=== PATIENT | male | born 1990 | race Caucasian/White ===

== ENCOUNTER 2019-02-28 07:12 | Outpatient (CLI) | payer OTHER, SELFPAY ==
[2019-02-28 07:39] LABS: HCT 43.4 % (40.0-50.0); HGB 15.8 g/dL (13.5-17.5); Mean Corp. HGB Concentration 36.4 g/dL (32.0-36.0); Mean Corpuscular Hemoglobin 32.4 pg (27.0-33.0); Mean Corpuscular Volume 89.1 fL (80-95); Platelet Count 168 x1000/uL (130-400); RBC 4.87 m/cumm (4.50-6.00); RBC Distribution Width 11.4 % (11.8-14.1); White Blood Cell Count 5.26 k/cumm (4.4-10.8)
[2019-02-28 08:54] LABS: ALT 36 U/L (12-78); AST 22 U/L (15-37); Albumin 4.1 g/dL (3.4-5.0); Alkaline Phosphatase 62 U/L (46-116); Anion Gap 7.3 mmol/L (3-11); BUN 22 mg/dL (7-18); Bilirubin, Total 0.5 mg/dL (0.2-1.0); CO2 30.7 mmol/L (21.0-32.0); CREATININE 1.18 mg/dL (0.70-1.30); Calcium 8.4 mg/dL (8.5-10.1); Calculated LDL 73 mg/dL; Chloride 101 mmol/L (98-107); Cholesterol 132 mg/dL (50-200); Glucose 77 mg/dL (70-100); HDL Cholesterol 40 mg/dL (40-60); Potassium 4.5 mmol/L (3.5-5.1); Sodium 139 mmol/L (136-145); Total Protein 6.7 g/dL (6.4-8.2); Triglyceride 96 mg/dL (30-150)
== END 2019-02-28 07:32 ==
PROVIDERS: PCP Family Medicine; Visit Provider Family Medicine
DX: Z00.00 Encounter for general adult medical examination without abnormal findings (principal); Z13.220 Encounter for screening for lipoid disorders; Z13.228 Encounter for screening for other metabolic disorders; Z13.0 Encounter for screening for diseases of the blood and blood-forming organs and certain disorders involving the immune mechanism
CPT/HCPCS: 36415; 80053; 80061; 83721; 85027

== ENCOUNTER 2021-07-09 08:14 | Emergency (ER) | payer OTHER, SELFPAY ==
[2021-07-09 08:20] VITALS: BP 145/88; PULSE 104; TEMP 37.2; O2SAT 98
[2021-07-09 08:29] VITALS: RESP 16
[2021-07-09 08:37] VITALS: BP 131/80; PULSE 94; RESP 16; O2SAT 99
--- NOTE | 2021-07-09 08:38 | ED.GENADUL_ITS ---
Discharge Plan Disposition Patient Disposition: HOME Condition: Stable Discharge Details Chief Complaint: GenMedical Clinical Impression: Acute viral syndrome Primary Care Provider: Kaia Mckay ED Provider: Anup Vizcaino Home Meds and New Rx's Prescriptions: No Action No Known Home Meds RF: 0 Discharge Instructions Instructions: Viral Syndrome (ED) Additional Instructions: Rapid strep is negative, culture is pending. Covid send out pending, will likely result in the next 2-3 days. I do recommend assuming that this is Covid until proven otherwise and quarantine until your test has resulted negative. You will receive a call either way with your Covid results. Plenty of fluids to avoid dehydration. Sfoa-[id number] medications as directed for symptomatic control. Please watch for new or worsening symptoms and return to the ER for any concerns. Otherwise please contact your primary care provider on Sunday to discuss your ongoing symptoms and need for outpatient reevaluation. Medical Decision Making 30-year-old gentleman presents for dry cough, sore throat, body aches that began yesterday. Clinically he appears well,. He is afebrile, O2 sats are 98% on room air. Heart rate in the 90s. Will obtain a rapid strep given his sore throat and a send out Covid test. He is not requiring any supplemental oxygen and if this was a Covid he does not fall into a high risk category and therefore would not be a candidate for monoclonal antibody therapy. We discussed presumptively treating as though this is Covid, recommend quarantine until he test has resulted hopefully negative in the next 2-3 days. Plenty of fluids to avoid dehydration, [id number] medication for symptomatic control. Patient is agreeable to this plan and has additional questions or concerns. Rapid strep negative, culture pending Standard discharge and return precautions provided This documentation was generated using [employer] system, please disregard any oddities of phrase or misspellings. Medical Records Medical records reviewed: Yes I reviewed the patient's medical records. HPI General Mode of arrival: ambulatory . Date/Time Provider Initiated Documentation: 07/09/21 08:24 . Limitations to Documentation: no limitations . Information obtained by: patient . HPI Narrative: This is a 30-year-old gentleman, non-smoker, no significant past medical history, who has had his 2 vaccines of Moderna for Covid, presents to the ER today reporting dry cough, nasal congestion, sore throat, body aches that began yesterday. Patient states that he is able to tolerate p.o. intake and has had some qtkx-ijy-hyllvek medications as well with little relief of his symptoms. Patient also reports headache. He denies any neck pain, fever, chest pain, shortness of breath, abdominal pain, nausea, vomiting, skin rash, diarrhea, materia or dysuria. Patient denies any known sick contacts. He is hoping for a rapid Covid test. Related Data Home Medications Medication Instructions Recorded Confirmed Unknown [No Known Home Meds] 02/24/19 07/09/21 Allergies Allergy/AdvReac Type Severity Reaction Status Date / Time bug Allergy Severe Anaphylaxsi Uncoded 07/09/21 08:25 s General Stated Complaint: GenMedical ARIAN: 4 Review of Systems Constitutional Constitutional: Denies fever(s) and Reports headache(s) ENT Ears, Nose, Mouth, and Throat: Reports headache(s), Denies neck pain and Reports sore throat Cardiovascular Cardiovascular: Denies chest pain and Denies dyspnea Respiratory Respiratory: Reports cough and Denies dyspnea Gastrointestinal Gastrointestinal: Denies abdominal pain, Denies nausea and Denies vomiting Musculoskeletal Musculoskeletal: Reports myalgias Integumentary/Breasts Skin/Breast: Denies rash Neurologic Neurologic: Reports headache(s) [facility] All Active Problems (Updated 07/09/21 @ 08:47 by CHRISTAL Chavez) Acute viral syndrome (Acute) Onychomycosis due to dermatophyte (Acute) Family History Mother Skin cancer Father No problems noted. Brother No problems noted. Maternal Grandfather , 50s Throat cancer Alcohol abuse Paternal Grandfather Prostate cancer Maternal Grandmother , 60s Breast cancer Social History Smoking/Tobacco Use Status: Never Smoking risk assessment performed?: Yes Alcohol Intake: current Alcohol Intake frequency: a few times a month Alcohol type: beer and hard liquor Drug use: Rarely Substance use type: marijuana Counseling given: No Counseling provided: none Caregiver/Support person: No Household members: spouse and children Housing: house Communication Needs: None Do you need help understanding health information?: Never Pets and animals: No Sexually active: Yes Do you think of yourself as: straight/heterosexual Current gender identity: male What is your relationship status?: How often do you talk on the phone with friends or family?: twice per week How often do you get together with friends or relatives?: once per week How often do you attend hinduism or latter-day services?: decline to answer Do you belong to any clubs or organized social groups?: no Panel score (0-1 are the most socially isolated patients): 2 What type of physical activity do you participate in: weight lifting Duration: 45-60 minutes/day Frequency: 5-6 times per week Laura/Oriental Orthodox: None Special laura needs: No Seatbelt use: sometimes Helmet use: Yes Helmet use: always Drive intox or ride w/intox truck driver instructor: No Do you feel safe at home: Yes Do you feel safe in your relationship?: Yes Exam Const General: cooperative, healthy appearing, comfortable and no acute distress Orientation: alert and awake HENMT Head: normal to inspection, normocephalic and atraumatic Ears: external ears normal, TM's normal bilaterally and EAC's normal Face and sinus: normal facial exam Mouth: moist mucous membranes Throat: uvula midline, posterior oropharynx abnormal erythema; no edema and no exudates, uvula not displaced and no uvular edema Eyes General: appearance normal, both eyes and all related structures Conjunctivae: conjunctivae normal Neck Neck: normal visual inspection, full ROM, no lymphadenopathy, no meningeal signs, trachea midline, supple and nontender Resp Effort & Inspection: normal respiratory effort and able to speak in complete sentences Auscultation: clear to auscultation bilaterally Cardio Rate: regular rate Rhythm: regular rhythm GI Palpation: soft and nontender Back/Spine/Pelvis Back: no CVA tenderness and No back tenderness Skin General skin exam: no rashes or lesions noted Neuro General: patient alert, patient awake, moves all extremities and no focal motor deficits Sensory Exam: no sensory deficits noted Psych Appearance: grossly normal Mental Status: mental status grossly normal Course Vital Signs Vital signs: Vital Signs Temperature 37.2 C 07/09/21 08:20 Pulse 104 H 07/09/21 08:20 Blood Pressure 145/88 H 07/09/21 08:20 Pulse Oximetry 98 07/09/21 08:20 Temperature 37.2 C 07/09/21 08:20 Temperature Source Temporal Artery Scan 07/09/21 08:20 Pulse 94 H 07/09/21 08:37 Respiratory Rate 16 07/09/21 08:37 Respiratory Effort Non-Labored 07/09/21 08:29 Respiratory Depth Normal 07/09/21 08:29 Respiratory Pattern Normal 07/09/21 08:29 Blood Pressure 131/80 07/09/21 08:37 Blood Pressure Position Sitting 07/09/21 08:20 Pulse Oximetry 99 07/09/21 08:37 Oxygen Delivery Method Room Air 07/09/21 08:37 Oxygen Flow Rate 0 07/09/21 08:37 Pain Level 7 07/09/21 08:20 PAWSS Have you Been Recently Intoxicated or Drunk Within the Last 30 days?: No Have you Ever Experienced Previous Episodes of Alcohol Withdrawal?: No Have you ever Experienced Withdrawal Seizures?: No Have you ever Experienced Delirium Tremens(DT)s?: No Have you ever undergone Alcohol Rehabilitation Treatment (i.e, inpt ot outpatient treatment programs)?: No Have you ever Experienced Blackouts?: No Have you ever Combined Alcohol with other Downers within the last 90 days?: No Have you ever Combined Alcohol with any other Substance of Abuse during the last 90 days?: No Positive Blood Alcohol level on Presentation? [PCS.BAL]: No Evidence of Increased Autonomic Activity (i.e. HR>120, tremor, sweating, agitation, nausea)?: No Result: 0
[2021-07-09 08:55] VITALS: BP 131/80; PULSE 94; RESP 16; TEMP 37.1; O2SAT 99
[2021-07-10 10:37] LABS: COVID-19 RT-PCR UVMMC Result Negative (Negative)
== END 2021-07-09 08:53 | disposition home or self-care (01) ==
PROVIDERS: Emergency Provider Physician Assistant; PCP Family Medicine
DX: J02.9 Acute pharyngitis, unspecified (principal); B34.9 Viral infection, unspecified; Z20.822 Contact with and (suspected) exposure to COVID-19
CPT/HCPCS: 87880; 99282; U0003; 87081

== ENCOUNTER 2023-02-19 10:56 | Outpatient (CLI) | payer OTHER, SELFPAY ==
--- NOTE | 2023-02-19 10:45 | DI.RAD_ITS ---
Exam(s) XR SHOULDER RT COMPLETE 2+V EXAM: XR SHOULDER RT COMPLETE 2+V CLINICAL HISTORY: right shoulder pain. TECHNIQUE: 2D digital imaging was performed. Five views. COMPARISON: No exams were available for comparison FINDINGS: BONES: No acute fracture is present. No bony destructive lesion is seen. JOINTS: No dislocation present. Minimal spurring at the AC joint. Glenohumeral joint is maintained. No significant spurring. SOFT TISSUE: Normal. IMPRESSION: Minimal degenerative changes the AC joint. DATA REPOSITORY: RADIATION DOSE DELIVERED:
== END 2023-02-19 10:57 | disposition home or self-care (01) ==
LOC: DIORS 10:56
PROVIDERS: PCP Family Medicine; Referring Provider Family Medicine; Visit Provider Student in an Organized Health Care Education/Training Program
DX: M25.511 Pain in right shoulder (principal)
CPT/HCPCS: 73030

== ENCOUNTER → 2023-03-09 00:16 | Outpatient (CLI) | payer OTHER, SELFPAY ==
--- NOTE | 2023-03-09 10:45 | DI.MRI_ITS ---
Exam(s) MR UPPER JOINT RT WO EXAM: MR UPPER JOINT RT WO CLINICAL HISTORY: R SHOULDER PAIN,SCAPULAR DYSKINESIA,G25.89 TECHNIQUE: Multiplanar multisequence MRI of the shoulder was performed. COMPARISON: CR XR SHOULDER RT COMPLETE 2+V from 02/19/2023 FINDINGS: MARROW:There is no evidence of fracture, Hill-Sachs deformity, Bankart type fracture, nor ominous oss eous lesions. ROTATOR CUFF MECHANISM: AC JOINT/ACROMIUM: There mild degenerative changes in the AC joint. No prominent downgoing osteophyt es.. There is no evidence of os acromiale. Supraspinatus: Intact. No evidence of tear nor muscle atrophy. Infraspinatus: Intact. No evidence of tear nor muscle atrophy. Teres Minor: Intact. No evidence of tear nor muscle atrophy. Subscapularis/anterior cuff: Intact. No abnormal signal at the level of the multipennate insertional fibers. No significant tear nor atrophy. BICEPS TENDON: Not displaced from its normal position within the intertubercular groove. No tenosynovitis. LABRUM: Superior labrum posterior to the biceps insertion is intact, as is the posterior labrum. Ther e is mild deficiency of the superior aspect of the anterior labrum. There is thickening of the inferi or glenohumeral ligament. This does not exhibit high signal and there is also no abnormal intraosseou s signal at its attachment to the humeral neck. GLENOHUMERAL JOINT: No joint effusion nor obvious loose intra-articular bodies. No chondral defects. No osteophytes. No degenerative subarticular cysts. QUADRILATERAL SPACE: No evidence of mass in the region of the axillary nerve and dorsal circumflex hu meral vessels. Visualized triceps muscle at this level appears unremarkable. IMPRESSION: 1. No evidence of rotator cuff tear. No evidence of rotator cuff tendinitis. 2. There is thickening of the inferior glenohumeral ligament noted, not associated with bright signal and therefore most probably chronic low-grade. 3. No evidence of biceps tendon tear. DATA REPOSITORY:
--- NOTE | 2023-03-09 13:24 | DI.VRAD_ITS ---
PROCEDURE INFORMATION: Exam: MR Right Upper Extremity Joint Without Contrast; Shoulder Exam date and time: 03/09/2023 10:09 AM Age: 32 years old Clinical indication: Pain; Shoulder; Right TECHNIQUE: Imaging protocol: Magnetic resonance imaging of the right upper extremity without contrast. Exam focused on the shoulder. COMPARISON: CR XR SHOULDER RT COMPLETE 2+V 02/19/2023 11:21 AM FINDINGS: Bones/joints: Minimal acromioclavicular degenerative change. Glenoid labrum: Unremarkable. No evidence of tear. Supraspinatus tendon: Unremarkable. No evidence of tear. Infraspinatus tendon: Unremarkable. No evidence of tear. Subscapularis tendon: Unremarkable. No evidence of tear. Teres minor tendon: Unremarkable. No evidence of tear. Tendon of biceps brachii: Unremarkable. No evidence of tear. Glenohumeral ligaments: Mild thickening of the inferior glenohumeral ligament suggests sequelae chronic partial tearing. Soft tissues: Unremarkable. IMPRESSION: 1. Minimal acromioclavicular degenerative change 2. Findings suspicious for chronic low-grade partial tearing inferior glenohumeral ligament Dictated and Authenticated by: Brie Lugo MD. Ordering:VIRGINIA Teran MD
== END ==
PROVIDERS: PCP Family Medicine; Visit Provider Student in an Organized Health Care Education/Training Program
DX: M25.511 Pain in right shoulder (principal)
CPT/HCPCS: 73221

== ENCOUNTER 2024-12-11 12:12 | Outpatient (REF) | payer OTHER, SELFPAY | END 2024-12-11 12:13 | disposition home or self-care (01) | LOC: LBN 12:12 | PROVIDERS: PCP Family Medicine; Visit Provider Podiatrist | DX: L97.529 Non-pressure chronic ulcer of other part of left foot with unspecified severity (principal); M79.674 Pain in right toe(s) | CPT/HCPCS: 87077; 87070; 87075; 87186; 87205 ==